=== PATIENT | female | born 1975 | race Caucasian/White ===

== ENCOUNTER 2017-09-27 19:49 | Emergency (ER) | payer OTHER ==
[~2017-09-27] VITALS: Ht 165.1 cm; Wt 70.3 kg
[2017-09-27 20:15] VITALS: BP 124/74
== END 2017-09-28 02:18 | disposition left against medical advice (07) ==
LOC: ER 19:56
DX: Z53.21 Procedure and treatment not carried out due to patient leaving prior to being seen by health care provider (principal)
CPT/HCPCS: A4606; Z7610

== ENCOUNTER 2017-12-25 19:35 | Emergency (ER) | payer OTHER ==
[~2017-12-25] VITALS: Ht 167.6 cm; Wt 72.6 kg
--- NOTE | 2017-12-25 19:52 | NUR ---
PATIENT TO ED DT RIGHT UPPER BACK PAIN WITH CHEST PAIN X 3 WEEKS. PATIENT IS AWAKE AND ALERT, NOT IN DISTRESS. SKIN IS WARM TO TOUCH AND NON DIAPHORETIC. PT IS AFEBRILE. VSS./
[2017-12-25 22:14] VITALS: BP 138/80
--- NOTE | 2017-12-25 22:26 | NUR ---
Patient discharged to home in stable condition. Written and verbal after care instructions given. Patient verbalizes understanding of instruction.
== END 2017-12-25 22:26 | disposition home or self-care (01) ==
LOC: ER 19:36
DX: R09.1 Pleurisy (principal); I10 Essential (primary) hypertension; J18.9 Pneumonia, unspecified organism; F17.200 Nicotine dependence, unspecified, uncomplicated; Z98.890 Other specified postprocedural states
CPT/HCPCS: 71045-TC; 84703-TC; A4606; Z7610